=== PATIENT | female | born 1955 | race Two or more races ===

== ENCOUNTER → 2018-04-24 | Outpatient (CLI) | payer MEDICARE ==
[2018-04-24 09:36] LABS: Basophils # (auto) 0 uL; Basophils % (auto) 0.8 % (0.0-2.0); Eosinophils # (auto) 0 uL; Hematocrit 44.9 % (36.0-46.0); Hemoglobin 14.6 g/dL (12.2-16.2); Lymphocytes # (auto) 0.9 uL; Lymphocytes % (auto) 19.5 % (10.0-50.0); Mean Corpuscular Hemoglobin 32.2 pg (28.0-32.0); Mean Corpuscular Hgb Conc. 32.6 g/dL (32.0-36.0); Monocytes # (auto) 0.5 uL; Monocytes % (auto) 10.1 % (0.0-12.0); Neutrophils % (auto) 68.6 % (37.0-80.0); Nucleated Red Blood Cells % 0.1 %; Platelet Count (auto) 207 10^3/uL (140-450); Red Blood Cells 4.54 10^6/uL (4.0-5.20); Red Cell Distribution Width 14.1 % (11.8-14.3); White Blood Cell 4.4 10^3/uL (4.4-10.8)
[2018-04-24 10:34] LABS: Albumin 3.9 g/dL (3.4-5.0); BUN/Creatinine Ratio 24.6; Bilirubin, Total 0.8 mg/dL (0.2-1.0); Calcium 8.6 mg/dL (8.5-10.1); Potassium 3.6 mmol/L (3.5-5.1); Total Protein 7.6 g/dL (6.4-8.2)
== END | disposition home or self-care (01) ==
LOC: LAB 09:04
PROVIDERS: ATTEND Internal Medicine
DX: E03.9 Hypothyroidism, unspecified (principal)
CPT/HCPCS: 36415; 80053; 84439; 84443; 85025; 85652

== ENCOUNTER 2019-08-02 11:23 | Emergency (ER) | payer MEDICARE ==
[~2019-08-02] VITALS: Ht 177.8 cm; Wt 63.5 kg
[2019-08-02 13:50] VITALS: BP 146/63
== END 2019-08-02 15:10 | disposition home or self-care (01) ==
LOC: ER 11:23
DX: H61.22 Impacted cerumen, left ear (principal); H60.92 Unspecified otitis externa, left ear; Z88.0 Allergy status to penicillin
CPT/HCPCS: 69209

== ENCOUNTER 2020-10-03 12:27 | Inpatient (IN) | payer MEDICARE ==
[~2020-10-03] VITALS: Ht 177.8 cm; Wt 75.1 kg
[2020-10-03 13:52] LABS: Basophils # (auto) 0 10 ^3/uL (0-0.2); Basophils % (auto) 0.3 % (0.0-2.0); Eosinophils # (auto) 0 10 ^3/uL (0-0.8); Eosinophils % (auto) 0.2 % (0.0-7.0); Hematocrit 43.2 % (36.0-46.0); Hemoglobin 14.7 g/dL (12.2-16.2); Lymphocytes # (auto) 0.6 10 ^3/uL (0.4-5.4); Lymphocytes % (auto) 8.7 % (10.0-50.0); Mean Corpuscular Hemoglobin 33.4 pg (28.0-32.0); Mean Corpuscular Volume 98.2 fL (80.0-100.0); Monocytes # (auto) 0.4 10 ^3/uL (0-1.3); Neutrophils % (auto) 84.8 % (37.0-80.0); Nucleated Red Blood Cells % 0.1 %; Red Cell Distribution Width 13.9 % (11.8-14.3); White Blood Cell 7.1 10^3/uL (4.4-10.8)
[2020-10-03 14:09] LABS: INR 1.01 (0.9-1.15); Partial Thromboplastin Time 25.6 sec (23.0-31.2)
[2020-10-03 14:16] LABS: Albumin 3.7 g/dL (3.4-5.0); BUN/Creatinine Ratio 24.3; Calcium 8.9 mg/dL (8.5-10.1); Magnesium 2.2 mg/dL (1.6-2.6)
[2020-10-03 14:18] LABS: Bilirubin, Total 0.6 mg/dL (0.2-1.0); Total Protein 7.2 g/dL (6.4-8.2)
[2020-10-03 14:42] LABS: Potassium 4.1 mmol/L (3.5-5.1)
[2020-10-03] MEDS ORDERED: ONDANSETRON HCL 4 MG/2 ML VIAL IV ONE (16:15)
[2020-10-03] MEDS ORDERED: MORPHINE SULFATE INJECTION 2 MG/ML SYRG IV ONE (16:15)
[2020-10-03] MEDS ORDERED: ZOLPIDEM TARTRATE 5 MG TAB PO PRN (16:30)
[2020-10-03] MEDS ORDERED: PROMETHAZINE HCL 25 MG/ML 1ML IV PRN (16:30)
[2020-10-03] MEDS ORDERED: ACETAMINOPHEN 500 MG TAB PO PRN (16:30)
[2020-10-03] MEDS: MORPHINE SULFATE INJECTION 2 MG/ML SYRG IV PRN ×2 (17:20→22:57)
[2020-10-03] MEDS: SODIUM CHLORIDE 0.9% 1,000 ML IV SCH (18:28)
[2020-10-03] MEDS: FAMOTIDINE 20 MG TAB PO SCH (22:00)
[2020-10-03 22:05] LABS: Urine Bacteria NONE SEEN /hpf (None Seen); Urine Blood Negative /uL (Negative); Urine Mucus FEW (None Seen); Urine Specific Gravity 1.015 (1.001-1.035); Urine WBC <1 /hpf (0 - 5)
[2020-10-03] MEDS ORDERED: LEVO112T4 PO (22:31)
[2020-10-03] MEDS: LORazepam 0.5 MG TAB PO PRN (23:27)
[2020-10-04] MEDS: SODIUM CHLORIDE 0.9% 1,000 ML IV SCH ×2 (02:30→12:30)
[2020-10-04] MEDS: HYDROcodone-ACET 5/325MG TAB PO PRN ×4 (04:01→22:30)
[2020-10-04] MEDS: LEVOTHYROXINE SODIUM 112 MCG TAB PO SCH (07:00)
[2020-10-04] MEDS: MORPHINE SULFATE INJECTION 2 MG/ML SYRG IV PRN (09:28)
[2020-10-04] MEDS: FAMOTIDINE 20 MG TAB PO SCH ×2 (10:00→22:00)
[2020-10-04 14:38] VITALS: BP 148/64
[2020-10-04 16:30] VITALS: BP 117/60
[2020-10-04 22:00] VITALS: BP 117/54
[2020-10-04] MEDS: LORazepam 0.5 MG TAB PO PRN (22:00)
[2020-10-05] MEDS: SODIUM CHLORIDE 0.9% 1,000 ML IV SCH ×3 (04:45→17:06)
[2020-10-05] MEDS: LEVOTHYROXINE SODIUM 112 MCG TAB PO SCH ×2 (06:34→22:00)
[2020-10-05 07:06] VITALS: BP 128/69
[2020-10-05 07:55] LABS: Basophils # (auto) 0 10 ^3/uL (0-0.2); Basophils % (auto) 0.5 % (0.0-2.0); Eosinophils # (auto) 0.1 10 ^3/uL (0-0.8); Hematocrit 40.9 % (36.0-46.0); Lymphocytes # (auto) 0.8 10 ^3/uL (0.4-5.4); Lymphocytes % (auto) 11.8 % (10.0-50.0); Mean Corpuscular Hemoglobin 33.4 pg (28.0-32.0); Mean Corpuscular Hgb Conc. 34.3 g/dL (32.0-36.0); Mean Corpuscular Volume 97.3 fL (80.0-100.0); Monocytes # (auto) 0.7 10 ^3/uL (0-1.3); Monocytes % (auto) 10.5 % (0.0-12.0); Neutrophils % (auto) 75.2 % (37.0-80.0); Nucleated Red Blood Cells % 0.1 %; White Blood Cell 6.6 10^3/uL (4.4-10.8)
[2020-10-05 08:00] VITALS: BP 140/69
[2020-10-05 08:06] LABS: Calcium 8.4 mg/dL (8.5-10.1); Potassium 3.5 mmol/L (3.5-5.1)
[2020-10-05 08:08] LABS: BUN/Creatinine Ratio 26.7
[2020-10-05] MEDS: FAMOTIDINE 20 MG TAB PO SCH ×2 (10:17→22:02)
[2020-10-05 12:00] VITALS: BP 113/69
[2020-10-05] MEDS: HYDROcodone-ACET 5/325MG TAB PO PRN ×2 (12:08→20:04)
[2020-10-05 16:00] VITALS: BP 114/78
[2020-10-05] MEDS: LORazepam 0.5 MG TAB PO PRN (20:25)
[2020-10-05 22:00] VITALS: BP 122/62
[2020-10-06] VITALS (12 sets, daily range): BP systolic 94–125; BP diastolic 53–77
[2020-10-06] MEDS: MORPHINE SULFATE INJECTION 2 MG/ML SYRG IV PRN
[2020-10-06] MEDS: SODIUM CHLORIDE 0.9% 1,000 ML IV SCH (01:30)
[2020-10-06 06:14] LABS: Basophils # (auto) 0 10 ^3/uL (0-0.2); Basophils % (auto) 0.6 % (0.0-2.0); Eosinophils # (auto) 0.2 10 ^3/uL (0-0.8); Eosinophils % (auto) 2.6 % (0.0-7.0); Hematocrit 38.4 % (36.0-46.0); Hemoglobin 13.3 g/dL (12.2-16.2); Lymphocytes # (auto) 0.8 10 ^3/uL (0.4-5.4); Lymphocytes % (auto) 10.6 % (10.0-50.0); Mean Corpuscular Hemoglobin 33.9 pg (28.0-32.0); Mean Corpuscular Hgb Conc. 34.7 g/dL (32.0-36.0); Mean Corpuscular Volume 97.6 fL (80.0-100.0); Monocytes # (auto) 0.7 10 ^3/uL (0-1.3); Monocytes % (auto) 10.3 % (0.0-12.0); Neutrophils # (auto) 5.5 10 ^3/uL (1.6-8.6); Neutrophils % (auto) 75.9 % (37.0-80.0); Red Blood Cells 3.94 10^6/uL (4.0-5.20); White Blood Cell 7.3 10^3/uL (4.4-10.8)
[2020-10-06 06:42] LABS: Calcium 7.8 mg/dL (8.5-10.1); Potassium 3.7 mmol/L (3.5-5.1)
[2020-10-06 06:45] LABS: BUN/Creatinine Ratio 37.2
[2020-10-06] MEDS: LEVOTHYROXINE SODIUM 112 MCG TAB PO SCH (07:00)
[2020-10-06] MEDS ORDERED: TRANEXAMIC ACID 20 ML ONE (07:20)
[2020-10-06] MEDS ORDERED: TETRACAINE 1% INJ 2 ML VIAL IJ ONE (07:20)
[2020-10-06] MEDS ORDERED: CLINDAMYCIN 600MG IV 50 ML IV ONE (07:24)
[2020-10-06] MEDS ORDERED: VANCOMYCIN HCL 1000 MG VL ONE (07:29)
[2020-10-06] MEDS ORDERED: MIDAZOLAM HCL 2MG/2ML 2ml VIAL (1mg/ml) ONE ×3 (07:31→08:21)
[2020-10-06] MEDS ORDERED: fentaNYL CITRATE 100 MCG/2 ML VL ONE (07:31)
[2020-10-06] MEDS ORDERED: DexAMETHasone SOD PHOS 10MG/1ML VIAL INJ ONE (07:31)
[2020-10-06] MEDS ORDERED: PROPOFOL 10 MG/ML 20 ML IV ONE (07:31)
[2020-10-06] MEDS ORDERED: MEPERIDINE HCL (50 MG/ML) 1 ML VIAL ONE (07:31)
[2020-10-06] MEDS ORDERED: MORPHINE SULF PF 2 MG/2 ML SYRG ONE (07:32)
[2020-10-06] MEDS ORDERED: PHENYLEPHRINE HCL 10 MG/ML VL IV ONE (07:35)
[2020-10-06] MEDS ORDERED: EPINEPHrine HCL 1 MG/10 ML SYRG ONE (08:26)
[2020-10-06] MEDS ORDERED: EPINEPHrine HCL 1 MG/1 ML AMP ONE (08:27)
[2020-10-06] MEDS: FAMOTIDINE 20 MG TAB PO SCH ×2 (10:00→22:00)
[2020-10-06] MEDS ORDERED: NALOXONE HCL 0.4 MG/ML VIAL IV PRN (10:15)
[2020-10-06] MEDS ORDERED: ePHEDrine SULFATE 50 MG/ML AMP IV PRN (10:15)
[2020-10-06] MEDS ORDERED: ACETAMINOPHEN 325 MG TAB PO PRN (10:15)
[2020-10-06] MEDS ORDERED: LABETALOL HCL 5 MG/ML 4ML SYRINGE IV PRN (10:15)
[2020-10-06] MEDS ORDERED: ONDANSETRON HCL 4 MG/2 ML VIAL IV PRN (10:15)
[2020-10-06] MEDS ORDERED: KETOROLAC TROMETH 30 MG/ML 1ML VIAL IV PRN ×2 (10:15)
[2020-10-06] MEDS ORDERED: NALBUPHINE HCL 10 MG/1ml INJECTION SUBCUT ONE (10:15)
[2020-10-06] MEDS ORDERED: diphenhdrAMINE HCL 50 MG/1 ML VL IV PRN (10:15)
[2020-10-06] MEDS ORDERED: HYDROmorphone HCL 2 MG/ML VL IV PRN (10:15)
[2020-10-06] MEDS ORDERED: MIDAZOLAM HCL 2MG/2ML 2ml VIAL (1mg/ml) IV PRN (10:15)
[2020-10-06] MEDS ORDERED: DexAMETHasone SOD PHOS 10MG/1ML VIAL INJ IV PRN (10:15)
[2020-10-06] MEDS: SODIUM CHLOR 0.9% PF (SALINE LOCK) 10ML VIAL/SYR IV SCH ×2 (14:21→22:00)
[2020-10-06] MEDS: CLINDAMYCIN 600MG IV 50 ML IV SCH ×2 (14:22→22:00)
[2020-10-06] MEDS: LACTATED RINGER'S 1,000 ML IV SCH ×2 (14:33→20:15)
[2020-10-06] MEDS: HYDROcodone-ACET 10/325MG TAB PO PRN ×2 (14:49→20:03)
[2020-10-06] MEDS: KETOROLAC TROMETH 30 MG/ML 1ML VIAL IV PRN (22:36)
[2020-10-07] VITALS (14 sets, daily range): BP systolic 87–120; BP diastolic 53–91
[2020-10-07] MEDS: LACTATED RINGER'S 1,000 ML IV SCH (02:00)
[2020-10-07] MEDS: SODIUM CHLOR 0.9% PF (SALINE LOCK) 10ML VIAL/SYR IV SCH ×3 (06:00→21:56)
[2020-10-07] MEDS: LEVOTHYROXINE SODIUM 112 MCG TAB PO SCH (06:32)
[2020-10-07] MEDS: HYDROcodone-ACET 10/325MG TAB PO PRN ×4 (06:32→23:00)
[2020-10-07 07:21] LABS: Basophils # (auto) 0 10 ^3/uL (0-0.2); Basophils % (auto) 0.4 % (0.0-2.0); Eosinophils # (auto) 0.2 10 ^3/uL (0-0.8); Eosinophils % (auto) 1.9 % (0.0-7.0); Hematocrit 39.3 % (36.0-46.0); Hemoglobin 13.5 g/dL (12.2-16.2); Lymphocytes # (auto) 0.5 10 ^3/uL (0.4-5.4); Lymphocytes % (auto) 5.4 % (10.0-50.0); Mean Corpuscular Hemoglobin 33.2 pg (28.0-32.0); Mean Corpuscular Hgb Conc. 34.2 g/dL (32.0-36.0); Mean Corpuscular Volume 97.1 fL (80.0-100.0); Monocytes # (auto) 0.8 10 ^3/uL (0-1.3); Monocytes % (auto) 9.3 % (0.0-12.0); Neutrophils # (auto) 7.2 10 ^3/uL (1.6-8.6); Nucleated Red Blood Cells % 0.2 %; Red Blood Cells 4.05 10^6/uL (4.0-5.20); Red Cell Distribution Width 13.8 % (11.8-14.3); White Blood Cell 8.6 10^3/uL (4.4-10.8)
[2020-10-07 07:38] LABS: Calcium 8.1 mg/dL (8.5-10.1); Potassium 3.7 mmol/L (3.5-5.1)
[2020-10-07 07:40] LABS: BUN/Creatinine Ratio 16.3
[2020-10-07] MEDS: FAMOTIDINE 20 MG TAB PO SCH ×2 (11:04→21:56)
[2020-10-07] MEDS: ENOXAPARIN SOD 40 MG/0.4 ML SYRINGE SC SCH (11:04)
[2020-10-07] MEDS: LORazepam 0.5 MG TAB PO PRN (21:55)
[2020-10-08] MEDS: LACTATED RINGER'S 1,000 ML IV SCH ×3 (02:15→21:59)
[2020-10-08 05:00] VITALS: BP 120/59
[2020-10-08] MEDS: SODIUM CHLOR 0.9% PF (SALINE LOCK) 10ML VIAL/SYR IV SCH ×3 (06:11→21:46)
[2020-10-08] MEDS: HYDROcodone-ACET 10/325MG TAB PO PRN ×4 (06:12→22:00)
[2020-10-08] MEDS: LEVOTHYROXINE SODIUM 112 MCG TAB PO SCH (06:12)
[2020-10-08 09:00] VITALS: BP 115/65
[2020-10-08] MEDS: FAMOTIDINE 20 MG TAB PO SCH ×2 (11:02→21:46)
[2020-10-08] MEDS: ENOXAPARIN SOD 40 MG/0.4 ML SYRINGE SC SCH (11:02)
[2020-10-08 12:39] VITALS: BP 96/57
[2020-10-08 16:52] VITALS: BP 129/59
[2020-10-08] MEDS: DOCUSATE SOD 100 MG CAP PO SCH (21:46)
[2020-10-08 22:00] VITALS: BP 100/52
[2020-10-09] MEDS: HYDROcodone-ACET 10/325MG TAB PO PRN ×2 (04:07→23:45)
[2020-10-09 05:00] VITALS: BP 123/73
[2020-10-09] MEDS: SODIUM CHLOR 0.9% PF (SALINE LOCK) 10ML VIAL/SYR IV SCH ×3 (06:01→21:37)
[2020-10-09] MEDS: LEVOTHYROXINE SODIUM 112 MCG TAB PO SCH (06:02)
[2020-10-09] MEDS: LACTATED RINGER'S 1,000 ML IV SCH (08:15)
[2020-10-09 08:49] VITALS: BP 115/60
[2020-10-09] MEDS: FAMOTIDINE 20 MG TAB PO SCH ×2 (09:40→21:37)
[2020-10-09] MEDS: RIVAROXABAN 10 MG TAB PO SCH (09:40)
[2020-10-09] MEDS: DOCUSATE SOD 100 MG CAP PO SCH ×2 (09:40→21:37)
[2020-10-09] MEDS: KETOROLAC TROMETH 30 MG/ML 1ML VIAL IV PRN ×2 (09:54→17:18)
[2020-10-09] MEDS ORDERED: XARELTO 10 MG PO SCH (10:00)
[2020-10-09 13:24] VITALS: BP 114/54
[2020-10-09 17:08] VITALS: BP 111/52
[2020-10-09 22:00] VITALS: BP 108/52
[2020-10-09] MEDS: LORazepam 0.5 MG TAB PO PRN (23:45)
[2020-10-10 05:00] VITALS: BP 113/63
[2020-10-10] MEDS: SODIUM CHLOR 0.9% PF (SALINE LOCK) 10ML VIAL/SYR IV SCH ×3 (05:21→21:46)
[2020-10-10] MEDS: KETOROLAC TROMETH 30 MG/ML 1ML VIAL IV PRN ×2 (05:22→16:42)
[2020-10-10] MEDS ORDERED: FLEET ENEMA(ADULT) 135 ML PR ONE (06:00)
[2020-10-10] MEDS: LEVOTHYROXINE SODIUM 112 MCG TAB PO SCH (06:10)
[2020-10-10 08:27] VITALS: BP 103/59
[2020-10-10] MEDS: FAMOTIDINE 20 MG TAB PO SCH ×2 (10:22→21:46)
[2020-10-10] MEDS: DOCUSATE SOD 100 MG CAP PO SCH ×2 (10:22→21:46)
[2020-10-10] MEDS: RIVAROXABAN 10 MG TAB PO SCH (10:22)
[2020-10-10 13:27] VITALS: BP 133/76
[2020-10-10 17:29] VITALS: BP 120/61
== END 2020-10-10 23:45 | DRG 522 ==
LOC: EDBD 12:27 → ER 12:27 → OVERFLOW 16:26 → TELE-WESTW 10-04 14:40 → WEST WING 10-08 22:50
PROVIDERS: ADMIT Internal Medicine; ATTEND Family Medicine
PROC: 0SRB06Z Replacement of Left Hip Joint with Oxidized Zirconium on Polyethylene Synthetic Substitute, Open Approach (ICD-10-PCS; principal; 2020-10-06 07:35)
DX: S72.002A Fracture of unspecified part of neck of left femur, initial encounter for closed fracture (principal); W01.0XXA Fall on same level from slipping, tripping and stumbling without subsequent striking against object, initial encounter; Z20.822 Contact with and (suspected) exposure to COVID-19; I10 Essential (primary) hypertension; G62.9 Polyneuropathy, unspecified; E89.0 Postprocedural hypothyroidism; Y99.9 Unspecified external cause status; Y93.89 Activity, other specified; Z88.0 Allergy status to penicillin; Z85.850 Personal history of malignant neoplasm of thyroid; Y92.000 Kitchen of unspecified non-institutional (private) residence as the place of occurrence of the external cause
CPT/HCPCS: 36415; 51702; 71045; 72170; 72192; 80048; 80053; 81001; 83735; 84443; 85025; 85610; 85730; 86850; 86900; 86901; 87081; 87426; 93005; 93306; 96374; 96375; 97110; 97116; 97163; 97530; C1776; G0378; J0171; J1100; J1885; J2250; J2405; J2704; J3490; J7042